=== PATIENT | male | born 1990 | race Caucasian/White ===

== ENCOUNTER 2016-11-20 22:02 | Emergency (ER) | payer MEDICAID ==
[2016-11-20 22:32] VITALS: BP 130/76
[2016-11-20] MEDS ORDERED: PREDNISONE 20 MG TABLET PO ONE (23:39)
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
== END 2016-11-21 00:05 | disposition home or self-care (01) ==
LOC: ER 22:02
DX: M54.41 Lumbago with sciatica, right side (principal); M54.9 Dorsalgia, unspecified; G89.29 Other chronic pain
CPT/HCPCS: 99283; J7512